=== PATIENT | female | born 1970 | race Caucasian/White ===

== ENCOUNTER → 2019-10-23 10:16 | Outpatient (CLI) | payer OTHER, SELFPAY ==
--- NOTE | ~2019-10-23 | XR_ITS ---
XR elbow RT min 3V DATE: 10/23/2019 10:51 INDICATION: Right elbow pain TECHNIQUE: 4 views COMPARISON: None FINDINGS: No fracture or dislocation or joint effusion. No periosteal reaction or bone destruction. IMPRESSION: Negative Reviewed, dictated and finalized at location [facility]. 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
== END ==
PROVIDERS: PCP Internal Medicine; Visit Provider Internal Medicine
DX: M25.521 Pain in right elbow (principal)
CPT/HCPCS: 73080

== ENCOUNTER → 2022-08-20 14:37 | Outpatient (CLI) | payer OTHER, SELFPAY ==
--- NOTE | ~2022-08-20 | CT_ITS ---
EXAMINATION: CT abdomen pelvis wo/w con DATE: 08/20/2022 15:06 INDICATION: Abdominal pain TECHNIQUE: Computed tomography (CT) of the abdomen and pelvis was performed without and subsequently with 100 CC Omnipaque 350 intravenous contrast. Automated exposure control and iterative reconstructi on technique were employed. Exam dose: 1089.76 mGy-cm total exam DLP. COMPARISON: None. FINDINGS: The lung bases are clear. Normal heart size. No pericardial or pleural effusion. The liver, spleen, pancreas, and adrenal glands and kidneys are unremarkable except for approximately 6.5 mm lower pole left renal cyst.. The gallbladder is present. No bile duct or pancreatic duct dila tation. No urinary tract calculus or hydroureteronephrosis. The urinary bladder is unremarkable. Stat us post hysterectomy. Normal caliber of the abdominal aorta. No intraperitoneal or retroperitoneal or pelvic mass lesion or adenopathy or ascites is detected. Normal appendix. No bowel obstruction, bowel wall thickening, pneumatosis or intraperitoneal free air . Small fat-containing umbilical hernia. Included skeletal structures are unremarkable. Moderately severe degenerative disc disease at L5-S1. Degenerative spurring of the lower thoracic spi ne. No suspicious osteolytic or osteoblastic lesions are noted. IMPRESSION: Normal appendix 6 mm lower pole left renal cyst Reviewed, dictated and finalized at [facility]. Reviewed, dictated and finalized at location [facility]. [employer]K SUPPORT ENGINEER
== END ==
PROVIDERS: PCP Internal Medicine; Visit Provider Internal Medicine
DX: R10.9 Unspecified abdominal pain (principal); N28.1 Cyst of kidney, acquired
CPT/HCPCS: 74178; Q9967

== ENCOUNTER 2023-07-10 07:00 | Outpatient (NON) | payer OTHER, SELFPAY | END 2023-07-10 07:01 | disposition home or self-care (01) | LOC: ANHLAB 07-11 10:52 | PROVIDERS: PCP Internal Medicine; Visit Provider Internal Medicine Gastroenterology | DX: D12.2 Benign neoplasm of ascending colon (principal) | CPT/HCPCS: 88305 ==

== ENCOUNTER 2023-07-10 10:03 | Day surgery (SDC) | payer OTHER, SELFPAY ==
[2023-06-27 10:58] VITALS: BMI 26.4
[2023-07-01 10:08] VITALS: BMI 26.6
[2023-07-10 12:03] VITALS: BP 123/86; PULSE 69; RESP 20; TEMP 36.9; O2SAT 100
--- NOTE | 2023-07-10 12:05 | WPDANESEPPF ---
Anes - Initial Pre Proc Eval Procedure: Operation Date: 07/10/23 13:00 Proposed Procedures p Esophagogastroduodenoscopy - Miguel Claros MD s Diagnostic Colonoscopy - Miguel Claros MD Date/Time: 07/10/23 12:05 Surgeon: Miguel Claros MD Pre Op Diagnosis: Epigastric Pain, Right Lower Quadrant Pain Patient Data Age: 52 Gender: F Height: 1.68 m Weight: 70.7 kg Last Vital Signs Temp 36.9 C 07/10/23 12:03 Pulse 69 07/10/23 12:03 Resp 20 07/10/23 12:03 BP 123/86 07/10/23 12:03 Pulse Ox 100 07/10/23 12:03 O2 Del Method Room Air 07/10/23 12:03 Allergies Allergy/AdvReac Type Severity Reaction Status Date / Time ciprofloxacin Allergy Mild Unknown Verified 07/10/23 12:02 Home Medications Medication Instructions Recorded Confirmed Type cholecalciferol (vitamin D3) 125 125 mcg PO DAILY 09/19/22 07/10/23 History mcg (5,000 unit) capsule estradiol 0.5 mg tablet 0.5 mg PO DAILY 09/19/22 07/10/23 History levothyroxine 75 mcg capsule 75 mcg PO DAILY 09/19/22 07/10/23 History magnesium carb,citrate,oxide 300 mg PO DAILY 09/19/22 07/10/23 History (Magnesium Complex) metronidazole 0.75 % topical gel 1 applic topical DAILY 09/19/22 07/10/23 History progesterone micronized 100 mg 100 mg PO QAM 09/19/22 07/10/23 History capsule vitamin K2 100 mcg capsule 100 mcg PO DAILY 09/19/22 07/10/23 History Testosterone TRIT 1 tablet tablet 1 mg sublingual DAILY #1 tablet 06/25/23 07/10/23 History potassium iodide 65 mg tablet 130 mg PO DAILY 06/25/23 07/10/23 History prasterone (dhea) 50 mg tablet 50 mg PO DAILY 06/25/23 07/10/23 History Patient hx anesthesia problems: none Family hx anesthesia problems: none Results Review: All pre-operative results and documents have been reviewed as part of the pre-operative evaluation. [facility] Past Medical History Medical History Abdominal pain Acute sinusitis Acute urinary tract infection Allergic reaction to bee sting Colon cancer screening Hyperglycemia Hyperlipidemia Hypothyroidism Intermittent epigastric abdominal pain Internal hemorrhoids with complication Menopausal flushing Migraine RLQ abdominal pain Umbilical hernia Vitamin D deficiency Surgical History Surgical History History of partial hysterectomy Previous section Family History Family History Father Hypertension Grandparent Hypertension Social History Social History (Updated 07/10/23 @ 12:05 by Jose De La Cruz MD) Smoking status: Former smoker Smoking end date: 09/15/98 Alcohol intake: current Alcohol use details: rarely Substance use: never Substance use type: does not use Living arrangements: alone Spiritual care concerns: No Anes - Eval Final PreProcedure Day of Procedure 07/10/23 12:05 Patient weight: normal Heart: regular rate and rhythm Lungs: clear to auscultation Airway: Mallampati scale class II Neurological: alert and oriented Last oral intake: >/= 8 hours ASA classification: II Emergent: no Anesthetic plan: proceed Anesthesia type and monitoring: general GIVS and standard monitoring Results Review: All pre-operative results and documents have been reviewed as part of the pre-operative evaluation. Informed Consent: The patient's anesthetic plan and its attendant risks and benefits were discussed with the patient/family/POA. Questions were solicited and answers provided to the satisfaction of the patient/family/POA.
[2023-07-10] MEDS: LACTATED RINGERS 1,000 ML 150 ML IV CONT (12:13)
--- NOTE | 2023-07-10 12:18 | WPDHPUPDATE1 ---
History and Physical Update Update Date/Time: 07/10/23 12:18 History and Physical has been reviewed, including an updated exam of the patient. There are NO changes in the patient's condition. Risks, benefits, and alternatives have been discussed and questions answered. Patient agrees to proceed with procedure.
[2023-07-10 12:43] VITALS: BP 120/71; PULSE 70; RESP 16; O2SAT 99
[2023-07-10 12:53] VITALS: BP 116/99; PULSE 64; RESP 16; O2SAT 99
--- NOTE | 2023-07-10 13:00 | WPDANESPN ---
Anes - Prog Note Post-Op Date/Time: 07/10/23 13:00 Cardiovascular status: normal Respiratory status: normal Airway patency: baseline Mental status: baseline Post-Op hydration status: normal Vital Signs: Last Vital Signs Temp 36.9 C 07/10/23 12:03 Pulse 64 07/10/23 12:53 Resp 16 07/10/23 12:53 BP 116/99 H 07/10/23 12:53 Pulse Ox 99 07/10/23 12:53 O2 Del Method Room Air 07/10/23 12:53 Pain Score (VAS): 0/10 I/O: Intake & Output 07/09/23 07/10/23 07/10/23 23:59 07:59 15:59 Intake Total 600 Balance 600 Patient Feedback: Patient satisfied with anesthetic care.
[2023-07-10 13:03] VITALS: BP 125/74; PULSE 65; RESP 20; O2SAT 100
== END 2023-07-10 13:23 | disposition home or self-care (01) ==
PROVIDERS: PCP Internal Medicine; Visit Provider Internal Medicine Gastroenterology
PROC: 0DJ08ZZ Inspection of Upper Intestinal Tract, Via Natural or Artificial Opening Endoscopic (ICD-10-PCS; CPT 43235; principal; 2023-07-10 13:00)
PROC: 0DJD8ZZ Inspection of Lower Intestinal Tract, Via Natural or Artificial Opening Endoscopic (ICD-10-PCS; CPT 45378; 2023-07-10 13:00)
DX: Z12.11 Encounter for screening for malignant neoplasm of colon (principal); D12.2 Benign neoplasm of ascending colon; R10.30 Lower abdominal pain, unspecified; K29.70 Gastritis, unspecified, without bleeding; R10.13 Epigastric pain
CPT/HCPCS: 45380; 43239

== ENCOUNTER 2025-02-27 12:44 | Emergency (ER) | payer OTHER, SELFPAY ==
--- NOTE | ~2025-02-27 | XR_ITS ---
Right Shoulder Technique: AP and axillary views were obtained. Clinical History: Pain Findings: No fracture or dislocation is seen. Osseous alignment is anatomic. The glenohumeral and acr omioclavicular joint spaces are preserved. Soft tissues are unremarkable. Impression: Unremarkable right shoulder radiographs. Reviewed, dictated and finalized at [facility]. Impression: Unremarkable right shoulder radiographs.
--- NOTE | 2025-02-27 12:46 | ED.UPPEXIN ---
HPI - Extremity Injury (Upper) General Chief Complaint: Extremity Injury, Upper Stated Complaint: Right Shoulder Injury Time Seen by Provider: 02/27/25 12:46 Source: patient Mode of arrival: ambulatory Limitations: no limitations History of Present Illness HPI narrative: Lisette is a 54-year-old female patient presenting to the clinic today with complaints of right shoulder injury. She reports she fell into a doorjamb and hit the right shoulder. Is having pain to the anterior and posterior shoulder. Is unable to lift up the shoulder without significant pain. She reports she has applied ice to the area but has not taken any Tylenol or ibuprofen for pain. Denies hitting her head or any loss of consciousness. Denies any neck pain. Related Data Home Medications ?Medication ?Instructions ?Recorded ?Confirmed ?Last Taken ?Type cholecalciferol (vitamin D3) 125 125 mcg PO DAILY 09/19/22 07/10/23 Unknown History mcg (5,000 unit) capsule estradiol 0.5 mg tablet 0.5 mg PO DAILY 09/19/22 07/10/23 Unknown History levothyroxine 75 mcg capsule 75 mcg PO DAILY 09/19/22 07/10/23 Unknown History magnesium carb,citrate,oxide 300 mg PO DAILY 09/19/22 07/10/23 Unknown History (Magnesium Complex) progesterone micronized 100 mg 100 mg PO QAM 09/19/22 07/10/23 Unknown History capsule vitamin K2 100 mcg capsule 100 mcg PO DAILY 09/19/22 07/10/23 Unknown History Testosterone TRIT 1 tablet tablet 1 mg sublingual DAILY #1 tablet 06/25/23 02/27/25 Unknown History potassium iodide 65 mg tablet 130 mg PO DAILY 06/25/23 07/10/23 Unknown History prasterone (DHEA) 50 mg tablet 50 mg PO DAILY 06/25/23 07/10/23 Unknown History levothyroxine 75 mcg tablet mcg 02/27/25 Unknown History progesterone micronized 200 mg mg 02/27/25 Unknown History capsule Allergies Allergy/AdvReac Type Severity Reaction Status Date / Time ciprofloxacin Allergy Mild Unknown Verified 02/27/25 12:56 Review of Systems Review of Systems: Pertinent positives per HPI. Patient denies any fever, chills, rash, headache, visual changes, dizziness, cough, runny nose, sore throat, shortness of breath, chest pain, palpitations, nausea, vomiting, diarrhea, constipation, abdominal pain, or any urinary issues. [facility] Past Medical History Medical History Adenomatous colon polyp Erosive gastritis RLQ abdominal pain Intermittent epigastric abdominal pain Colon cancer screening Internal hemorrhoids with complication Umbilical hernia Migraine Abdominal pain Menopausal flushing Hyperglycemia Allergic reaction to bee sting Acute urinary tract infection Acute sinusitis Vitamin D deficiency Hyperlipidemia Hypothyroidism Surgical History Surgical History Previous section History of partial hysterectomy Family History Family History Father Hypertension Grandparent Hypertension Social History Social History Smoking status: Former smoker Smoking end date: 09/15/98 Alcohol intake: current Alcohol use details: rarely Substance use: never Substance use type: does not use Living arrangements: alone Spiritual care concerns: No Comments At the time of my signature, I reviewed and agree with the nursing past medical, surgical, social, and family history. There is no relevant family history pertinent to the patient complaint. Exam Narrative: General: Well-developed, well nourished, in no apparent distress Head: Normocephalic, atraumatic. Cardio: Regular rate and rhythm, s1 and s2 normal, no murmur appreciated. Resp: Clear to auscultation bilaterally, no rhonchi, rales, wheezing or rubs. Musculoskeletal: No deformity, tender to palpation over the right anterior/posterior shoulder pain, limited range of motion due to pain, muscle strength strong and equal, peripheral pulse strong, no edema, no cyanosis, normal gait and station Course Course Emergency Course: Portions of this record may have been created with voice recognition software. Level of Care: Express Care Visit Vital Signs Vital signs: Vital Signs Temperature 36.9 C 02/27/25 12:53 Pulse Rate 84 02/27/25 12:53 Respiratory Rate 18 02/27/25 12:53 Blood Pressure 159/94 H 02/27/25 12:53 Pulse Oximetry 98 02/27/25 12:53 Oxygen Delivery Room Air 02/27/25 12:53 Temperature 36.9 C 02/27/25 12:53 Pulse Rate 84 02/27/25 12:53 Respiratory Rate 18 02/27/25 12:53 Blood Pressure 159/94 H 02/27/25 12:53 Pulse Oximetry 98 02/27/25 12:53 Oxygen Delivery Room Air 02/27/25 12:53 Vital signs reviewed MDM - Extremity Injury (Upper) MDM Narrative Medical decision making narrative: At the time of visit patient is resting comfortably on the exam table. Patient appears to be nontoxic. Diagnostics: X-ray of the right shoulder was performed and is negative for any sign of fracture or malalignment Plan: I suspect patient has right shoulder sprain/contusion. Recommend wearing arm sling for 3 days. Rest, ice, and elevate. Supportive measures were discussed with the patient and they voiced understanding discharge instructions and agrees to treatment plan. Return precautions reviewed Differential Diagnosis Differential diagnosis: Likely dislocation of shoulder, fracture of humerus, fracture of clavicle and other (Rotator cuff tear/injury, AC joint separation) Imaging Data Radiologist's impression: ITS Impressions Shoulder X-Ray 02/27/25 13:16 Impression: Unremarkable right shoulder radiographs. Discharge Plan Discharge Clinical Impression: Sprain of right shoulder, Contusion of right shoulder Patient Disposition: Home Condition: Stable Instructions: Antibiotic Form, Contusion in Adults (ED), Shoulder Sprain (ED) Additional Instructions: X-rays negative for any sign of fracture or malalignment of the right shoulder. Rest, ice, elevate, and wear darius arm sling as directed. Recommend wearing the arm sling for the next 3 days Apply ice to the affected area for 20 minutes at a time 20 minutes on/20 minutes off Tylenol/motrin for pain as discussed. Follow up with your PCP if symptoms persist more than 1 week. Patient Language: Sammarinese Prescriptions: No Action levothyroxine 75 mcg tablet progesterone micronized 200 mg capsule levothyroxine 75 mcg capsule 75 mcg PO DAILY progesterone micronized 100 mg capsule 100 mg PO QAM Rx Instructions: off 7 days; repeat cycle Magnesium Complex 300 mg magnesium tablet 300 mg PO DAILY estradiol 0.5 mg tablet 0.5 mg PO DAILY Rx Instructions: off 5 days; repeat cycle cholecalciferol (vitamin D3) 125 mcg (5,000 unit) capsule 125 mcg PO DAILY vitamin K2 100 mcg capsule 100 mcg PO DAILY Testosterone TRIT 1 tablet tablet 1 mg sublingual DAILY Qty: 1 potassium iodide 65 mg tablet 130 mg PO DAILY prasterone (DHEA) 50 mg tablet 50 mg PO DAILY omeprazole 40 mg capsule,delayed release(DR/EC) See Rx Instructions .ROUTE .COMPLEX Qty: 90 3RF Dose Instruction: TAKE 1 CAPSULE BY MOUTH DAILY Rx Instructions: TAKE 1 CAPSULE BY MOUTH DAILY Follow-up/Referrals: Astrid,Shakeel Paul MD [Primary Care Provider] - Stand Alone Forms: Work/School Release IP Time of Disposition: 13:23 Quality NIHSS Nursing Documentation ED NIHSS nursing documentation: reviewed/agree
[2025-02-27 12:53] VITALS: BP 159/94; PULSE 84; RESP 18; TEMP 36.9; O2SAT 98
== END 2025-02-27 13:32 | disposition home or self-care (01) ==
PROVIDERS: Emergency Provider Nurse Practitioner Family; PCP Internal Medicine
DX: S43.401A Unspecified sprain of right shoulder joint, initial encounter (principal); S46.911A Strain of unspecified muscle, fascia and tendon at shoulder and upper arm level, right arm, initial encounter; W19.XXXA Unspecified fall, initial encounter; S40.011A Contusion of right shoulder, initial encounter; Z87.891 Personal history of nicotine dependence; E03.9 Hypothyroidism, unspecified; E78.5 Hyperlipidemia, unspecified; E55.9 Vitamin D deficiency, unspecified; Z90.711 Acquired absence of uterus with remaining cervical stump
CPT/HCPCS: 73030; 99213; A4565; G0463